=== PATIENT | male | born 1940 | race Hispanic/Latino ===

== ENCOUNTER 2016-09-16 08:38 | Outpatient (CLI) | payer MEDICARE ==
[2016-09-16 08:56] LABS: #Eosinphils 0.2 thou/uL (0.0-0.7); #Lymphocytes 1.9 thou/uL (1.20-3.40); #Monocytes 0.6 thou/uL (0.11-0.59); #Neutrophils 3.3 thou/uL (1.40-6.50); %Basophils 0.8 % (0.0-1.0); %Eosinophils 2.7 % (0.0-10.0); %Monocytes 9.7 % (0.0-10.0); %Neutrophils 54.9 % (42.0-75.0); Hemoglobin 14.7 g/dL (14.0-18.0); Mean Corpuscular HGB CONC 35.3 g/dL (32.0-36.0); Mean Corpuscular Volume 96.4 fl (80.0-94.0); Mean Platelet Volume 11.3 fL (7.4-10.4); Platelet Count 158 thou/uL (130-400); RBC Distribution Width 11.5 % (11.5-14.5); Red Blood Cell (RBC) Count 4.33 mill/uL (4.70-6.10)
[2016-09-16 09:22] LABS: ALT (SGPT) 27 U/L (0-55); AST (SGOT) 20 U/L (5-34); Albumin 4.2 g/dL (3.4-4.8); Alkaline Phosphatase 71 U/L (40-150); Anion Gap 16 mmol/L (10-20); BUN (Urea Nitrogen) 16 mg/dL (8.4-25.7); Bilirubin, Total 0.8 mg/dL (0.2-1.2); Calc. Creatinine Clearance 0 mL/min (70-130); Carbon Dioxide 24 mmol/L (23-31); Cardiac Risk 2.6 (Less than 4.5); Chloride 105 mmol/L (98-107); Cholesterol 106 mg/dL (< 200 Desired); Estimated GFR-MDRD Greater than 90; Globulin 2.3 g/dL (2.4-3.5); Glucose 101 mg/dL (83-110); HDL Cholesterol 41 mg/dL (>60 Neg Risk); LDL Cholesterol, Calculated 51 mg/dL; Potassium 4.2 mmol/L (3.5-5.1); Protein, Total 6.5 g/dL (5.8-8.1); Sodium 141 mmol/L (136-145); Triglycerides 71 mg/dL (Less than 150)
[2016-09-16 12:14] LABS: Bilirubin Negative (Negative); Blood, Urine Negative (Negative); Clarity Clear (Clear); Glucose, Urine (Dipstick) Negative (Negative); Leukocyte Negative (Negative); Nitrite Negative (Negative); Protein, Urine (Dipstick) Negative (Neg-Trace); Urobilinogen 0.2 mg/dL (0.2-1.0); pH, Urine 6.5 (5.0-9.0)
[2016-09-16 12:26] LABS: Bacteria/HPF None Seen HPF (None Seen); RBC/HPF 0-3 HPF (0-3); Squamous Epithelial 0-3 HPF (0-3); WBC/HPF 0-3 HPF (0-3)
== END 2016-09-16 08:39 | disposition home or self-care (01) ==
LOC: MADLABBHPM 08:38
PROVIDERS: ATTEND Family Medicine
DX: I25.10 Atherosclerotic heart disease of native coronary artery without angina pectoris (principal)
CPT/HCPCS: 36415; 80053; 80061; 81001; 84443; 85025

== ENCOUNTER 2018-03-09 10:54 | Outpatient (CLI) | payer MEDICARE ==
[2018-03-09 11:55] LABS: ALT (SGPT) 24 U/L (8-55); AST (SGOT) 18 U/L (5-34); Albumin 4.9 g/dL (3.4-4.8); Alkaline Phosphatase 75 U/L (40-150); Anion Gap 16 mmol/L (10-20); BUN (Urea Nitrogen) 24 mg/dL (8.4-25.7); Bilirubin, Total 1.5 mg/dL (0.2-1.2); Calc. Creatinine Clearance 0 mL/min (70-130); Calcium 9.6 mg/dL (7.8-10.44); Carbon Dioxide 22 mmol/L (23-31); Cardiac Risk 2.9 (Less than 4.5); Chloride 104 mmol/L (98-107); Cholesterol 155 mg/dl (< 200 Desired); Estimated GFR-MDRD 81; Glucose 139 mg/dL (83-110); HDL Cholesterol 54 mg/dL (>60 Neg Risk); LDL Cholesterol, Calculated 91 mg/dL; Potassium 4.2 mmol/L (3.5-5.1); Protein, Total 7.9 g/dL (5.8-8.1); Sodium 138 mmol/L (136-145); Triglycerides 52 mg/dL (Less than 150)
== END 2018-03-09 10:55 | disposition home or self-care (01) ==
LOC: MADLABBHPM 10:54
PROVIDERS: ATTEND Internal Medicine Cardiovascular Disease
DX: E78.00 Pure hypercholesterolemia, unspecified (principal)
CPT/HCPCS: 36415; 80053; 80061

== ENCOUNTER 2018-06-20 04:14 | Emergency (ER) | payer MEDICARE ==
[2018-06-20] MEDS ORDERED: Tetracaine 0.5% OPHTH SOLN/PF 4 ML BOT ONE (04:26)
[2018-06-20] MEDS ORDERED: predniSONE 20 MG TAB ONE (04:51)
[2018-06-20] MEDS ORDERED: Acetaminophen 500 MG TAB ONE (04:53)
== END 2018-06-20 05:06 | disposition home or self-care (01) ==
LOC: MADERS 04:14
DX: H10.12 Acute atopic conjunctivitis, left eye (principal); I10 Essential (primary) hypertension; Z86.73 Personal history of transient ischemic attack (TIA), and cerebral infarction without residual deficits; Z79.82 Long term (current) use of aspirin; Z79.899 Other long term (current) drug therapy
CPT/HCPCS: 99283; J7506

== ENCOUNTER 2020-10-27 14:08 | Emergency (ER) | payer MEDICARE, MEDICAID ==
[2020-10-27 15:18] LABS: #Eosinphils 0.2 thou/uL (0.0-0.7); #Lymphocytes 1.4 thou/uL (1.20-3.40); #Monocytes 0.5 thou/uL (0.11-0.59); #Neutrophils 4.6 thou/uL (1.40-6.50); %Basophils 0.7 % (0.0-1.0); %Lymphocytes 20.3 % (21.0-51.0); %Monocytes 7.8 % (0.0-10.0); %Neutrophils 68.3 % (42.0-75.0); Hemoglobin 10.8 g/dL (14.0-18.0); Mean Corpuscular HGB CONC 32.9 g/dL (32.0-36.0); Mean Corpuscular Volume 97.2 fL (78.0-98.0); Mean Platelet Volume 8.4 fL (7.4-10.4); Platelet Count 175 thou/uL (130-400); RBC Distribution Width 12.7 % (11.5-14.5); Red Blood Cell (RBC) Count 3.39 mill/uL (4.70-6.10); White Blood Cell (WBC) Count 6.8 thou/uL (4.8-10.8)
--- NOTE | 2020-10-27 15:26 | RAD ---
EXAM: Chest one view: HISTORY: Cough and fever COMPARISON: 11/19/2008 FINDINGS: Heart size: Within normal limits. Lungs: Clear of acute process. No evidence for confluent lobar pneumonia, significant pleural effusion, acute edema, or pneumothorax , or other significant acute process. IMPRESSION: No significant acute intrathoracic disease.
[2020-10-27 15:35] LABS: ALT (SGPT) 14 U/L (8-55); AST (SGOT) 15 U/L (5-34); Albumin 3.9 g/dL (3.4-4.8); Alkaline Phosphatase 87 U/L (40-110); Anion Gap 16 mmol/L (10-20); BUN (Urea Nitrogen) 25 mg/dL (8.4-25.7); Bilirubin, Total 0.4 mg/dL (0.2-1.2); Calc. Creatinine Clearance 0 mL/min (70-130); Calcium 9.4 mg/dL (7.8-10.44); Carbon Dioxide 24 mmol/L (23-31); Chloride 106 mmol/L (98-107); Globulin 3.4 g/dL (2.4-3.5); Glucose 103 mg/dL (83-110); Potassium 3.6 mmol/L (3.5-5.1); Protein, Total 7.3 g/dL (5.8-8.1); Sodium 142 mmol/L (136-145)
[2020-10-27 16:28] LABS: Bilirubin Negative (Negative); Blood, Urine Small (Negative); Clarity Hazy (Clear); Glucose, Urine (Dipstick) Negative (Negative); Ketone, Urine Negative (Negative); Leukocyte Moderate (Negative); Nitrite Positive (Negative); Protein, Urine (Dipstick) Negative (Neg-Trace); Urobilinogen 0.2 mg/dL (Less than 2); pH, Urine 6.5 (5.0-9.0)
[2020-10-27 16:34] LABS: SARS-CoV-2 NAA Rapid Test Not Detected (NotDetected)
[2020-10-27 16:36] LABS: RBC/HPF 0-3 HPF (0-3); Squamous Epithelial 0-3 HPF (0-3); WBC/HPF 21-50 HPF (0-3)
[2020-10-27 16:37] LABS: Bacteria/HPF 2+ HPF (None Seen)
[2020-10-27] MEDS ORDERED: cefTRIAXone\\ROCEPHIN 1 GM VIAL ONE (17:09)
[2020-10-27] MEDS ORDERED: Sodium Chloride 0.9% 100 ML ONE (17:10)
== END 2020-10-27 18:05 | disposition critical access hospital (66) ==
LOC: MADERS 14:08
DX: N39.0 Urinary tract infection, site not specified (principal); Z20.822 Contact with and (suspected) exposure to COVID-19; I10 Essential (primary) hypertension; Z86.73 Personal history of transient ischemic attack (TIA), and cerebral infarction without residual deficits; Z79.82 Long term (current) use of aspirin; Z79.899 Other long term (current) drug therapy
CPT/HCPCS: 0240U; 36415; 71045; 80053; 81003; 81015; 83605; 84484; 85025; 87040; 87077; 87086; 87186; 93005; J0696; J3490

== ENCOUNTER 2020-10-27 18:25 | Inpatient (IN) | payer MEDICARE, MEDICAID ==
[2020-10-27] MEDS: Sodium Chloride 0.9% 1,000 ML IV SCH (22:10)
[2020-10-27] MEDS: Famotidine 20 MG TAB PO SCH (22:15)
[2020-10-27] MEDS: Temazepam 15 MG CAP PO SCH (22:16)
[2020-10-27] MEDS: OLANZapine 5 MG TAB PO SCH (22:16)
[2020-10-27] MEDS: Mirtazapine 15 MG TAB PO SCH (22:17)
[2020-10-27] MEDS: Metoprolol Tartrate 25 MG TAB PO SCH (22:17)
[2020-10-27] MEDS: Tamsulosin HCl 0.4 MG CAP PO SCH (22:17)
[2020-10-28 02:57] VITALS: BMI 22.5
[2020-10-28 05:49] LABS: Band 1 % (5-11); Hemoglobin 11.1 g/dL (14.0-18.0); Lymphocytes 16 % (21-51); MDiff Complete? YES; Mean Corpuscular HGB CONC 33.6 g/dL (32.0-36.0); Mean Corpuscular Hemoglobin 32.6 pg (27.0-31.0); Mean Platelet Volume 8.9 fL (7.4-10.4); Monocytes 8 % (0-10); Neutrophil 75 % (42-75); Platelet Count 180 thou/uL (130-400); Platelet Morphology Comment Appears Adequate; RBC Distribution Width 12.8 % (11.5-14.5); RBC Morphology Normal; Red Blood Cell (RBC) Count 3.41 mill/uL (4.70-6.10); White Blood Cell (WBC) Count 5.7 thou/uL (4.8-10.8)
[2020-10-28 05:50] LABS: Anion Gap 14 mmol/L (10-20); BUN (Urea Nitrogen) 16 mg/dL (8.4-25.7); Calc. Creatinine Clearance 80 mL/min (70-130); Calcium 9.1 mg/dL (7.8-10.44); Carbon Dioxide 26 mmol/L (23-31); Chloride 109 mmol/L (98-107); Glucose 84 mg/dL (83-110); Potassium 3.4 mmol/L (3.5-5.1); Sodium 146 mmol/L (136-145)
[2020-10-28] MEDS: Sodium Chloride 0.9% 1,000 ML IV SCH (08:56)
[2020-10-28] MEDS: Amlodipine 5 MG TAB PO SCH (08:57)
[2020-10-28] MEDS: Famotidine 20 MG TAB PO SCH ×2 (08:57→20:23)
[2020-10-28] MEDS: Azithromycin 250 MG TAB PO SCH (08:57)
[2020-10-28] MEDS: Metoprolol Tartrate 25 MG TAB PO SCH ×2 (08:58→20:24)
[2020-10-28] MEDS ORDERED: FLU VACC QS2020-21(65YR UP)/PF 240 MCG/0.7 ML SYRINGE IM ONE (09:00)
[2020-10-28] MEDS ORDERED: Bromocriptine 2.5 MG TAB PO SCH (09:00)
[2020-10-28] MEDS ORDERED: OLANZapine 5 MG TAB PO SCH (11:00)
[2020-10-28] MEDS ORDERED: Albuterol 200 PUFF (6.7GM INHALER) INH PRN (16:02)
[2020-10-28] MEDS: Albuterol 200 PUFF (6.7GM INHALER) INH SCH ×2 (16:11→18:19)
[2020-10-28] MEDS: Potassium Chloride 10 MEQ TAB PO SCH (16:57)
[2020-10-28] MEDS ORDERED: cefTRIAXone\\ROCEPHIN 1 GM in Sodium Chloride 0.9% 100 ML IVPB SCH (17:00)
[2020-10-28] MEDS: guaiFENesin ER 600 MG TAB PO SCH (20:23)
[2020-10-28] MEDS: Cefdinir 300 MG CAP PO SCH (20:23)
[2020-10-28] MEDS: Tamsulosin HCl 0.4 MG CAP PO SCH (20:24)
[2020-10-28] MEDS: Temazepam 15 MG CAP PO SCH (20:24)
[2020-10-28] MEDS: OLANZapine 5 MG TAB PO SCH (20:24)
[2020-10-28] MEDS: Mirtazapine 15 MG TAB PO SCH (20:24)
[2020-10-29] MEDS: Albuterol 200 PUFF (6.7GM INHALER) INH SCH ×3 (05:15→18:00)
[2020-10-29] MEDS ORDERED: predniSONE 20 MG TAB PO SCH (08:00)
[2020-10-29] MEDS: Azithromycin 250 MG TAB PO SCH (08:24)
[2020-10-29] MEDS: Amlodipine 5 MG TAB PO SCH (08:24)
[2020-10-29] MEDS: Metoprolol Tartrate 25 MG TAB PO SCH (08:24)
[2020-10-29] MEDS: Famotidine 20 MG TAB PO SCH (08:24)
[2020-10-29] MEDS: Cefdinir 300 MG CAP PO SCH (08:24)
[2020-10-29] MEDS: guaiFENesin ER 600 MG TAB PO SCH (08:24)
[2020-10-29] MEDS: Potassium Chloride 10 MEQ TAB PO SCH (08:25)
[2020-10-29] MEDS: Enoxaparin Sodium 40 MG/0.4 ML SYRINGE SC SCH (08:25)
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
[2020-10-29] MEDS ORDERED: OLANZapine 5 MG TAB PO SCH (09:00)
[2020-10-29] MEDS ORDERED: SMX/TMP 800-160mg/20 ML UDCUP ONE ×2 (11:13→20:29)
[2020-10-29] MEDS ORDERED: SMX/TMP 800-160mg/20 ML UDCUP PER TUBE SCH (11:15)
[2020-10-29] MEDS ORDERED: Potassium Bicarbonate/Cit Ac 20 MEQ TAB PER TUBE SCH (17:15)
[2020-10-29] MEDS: GUAIFENESIN SF SOLN 200 MG/10 ML UDCUP PER TUBE SCH (17:19)
[2020-10-29] MEDS ORDERED: Mirtazapine 15 MG TAB PER TUBE SCH (21:00)
[2020-10-29] MEDS ORDERED: Tamsulosin HCl 0.4 MG CAP PO SCH (21:00)
[2020-10-29] MEDS: Cefdinir 300 MG CAP PER TUBE SCH (21:51)
[2020-10-29] MEDS: Tamsulosin HCl 0.4 MG CAP PO SCH (21:51)
[2020-10-29] MEDS: Temazepam 15 MG CAP PER TUBE SCH (21:51)
[2020-10-29] MEDS: Metoprolol Tartrate 25 MG TAB PER TUBE SCH (21:52)
[2020-10-29] MEDS: OLANZapine 5 MG TAB PER TUBE SCH (21:52)
[2020-10-29] MEDS: Famotidine 20 MG TAB PER TUBE SCH (21:53)
[2020-10-29] MEDS: SMX/TMP 800-160mg/20 ML UDCUP PER TUBE SCH (21:54)
[2020-10-29] MEDS ORDERED: Mirtazapine 30 MG Soltab PER TUBE SCH (22:45)
[2020-10-30] MEDS ORDERED: Guaifenesin DM 100-10/5 ML UDCUP ONE (00:47)
[2020-10-30] MEDS: GUAIFENESIN SF SOLN 200 MG/10 ML UDCUP PER TUBE SCH ×4 (02:30→17:21)
[2020-10-30 05:23] LABS: #Eosinphils 0.1 thou/uL (0.0-0.7); #Lymphocytes 1.5 thou/uL (1.20-3.40); #Monocytes 0.7 thou/uL (0.11-0.59); #Neutrophils 3.8 thou/uL (1.40-6.50); %Basophils 0.6 % (0.0-1.0); %Eosinophils 1.9 % (0.0-10.0); %Lymphocytes 24.5 % (21.0-51.0); %Monocytes 11.7 % (0.0-10.0); %Neutrophils 61.3 % (42.0-75.0); Hemoglobin 11.8 g/dL (14.0-18.0); Mean Corpuscular Hemoglobin 31.2 pg (27.0-31.0); Mean Corpuscular Volume 94.7 fL (78.0-98.0); Mean Platelet Volume 7.9 fL (7.4-10.4); Platelet Count 223 thou/uL (130-400); RBC Distribution Width 12.3 % (11.5-14.5); Red Blood Cell (RBC) Count 3.79 mill/uL (4.70-6.10); White Blood Cell (WBC) Count 6.2 thou/uL (4.8-10.8)
[2020-10-30] MEDS: Albuterol 200 PUFF (6.7GM INHALER) INH SCH ×3 (05:29→17:24)
[2020-10-30 05:33] LABS: Anion Gap 15 mmol/L (10-20); BUN (Urea Nitrogen) 29 mg/dL (8.4-25.7); Calc. Creatinine Clearance 68 mL/min (70-130); Calcium 9.4 mg/dL (7.8-10.44); Carbon Dioxide 26 mmol/L (23-31); Chloride 106 mmol/L (98-107); Glucose 121 mg/dL (83-110); Potassium 3.2 mmol/L (3.5-5.1); Sodium 144 mmol/L (136-145)
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
[2020-10-30] MEDS ORDERED: Amlodipine 5 MG TAB PO SCH (09:00)
[2020-10-30] MEDS: OLANZapine 5 MG TAB PER TUBE SCH ×2 (09:17→21:50)
[2020-10-30] MEDS: Cefdinir 300 MG CAP PER TUBE SCH ×2 (09:17→21:50)
[2020-10-30] MEDS: predniSONE 20 MG TAB PER TUBE SCH (09:17)
[2020-10-30] MEDS: Famotidine 20 MG TAB PER TUBE SCH ×2 (09:17→21:50)
[2020-10-30] MEDS: Metoprolol Tartrate 25 MG TAB PER TUBE SCH ×2 (09:18→21:51)
[2020-10-30] MEDS: Potassium Bicarbonate/Cit Ac 20 MEQ TAB PER TUBE SCH ×2 (09:18→17:21)
[2020-10-30] MEDS: Enoxaparin Sodium 40 MG/0.4 ML SYRINGE SC SCH (09:19)
[2020-10-30] MEDS: Azithromycin 200 MG/5 ML Oral Suspension PER TUBE SCH (09:32)
[2020-10-30] MEDS: SMX/TMP 800-160mg/20 ML UDCUP PER TUBE SCH ×2 (09:35→21:50)
[2020-10-30] MEDS: Amlodipine 5 MG TAB PER TUBE SCH (09:53)
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
[2020-10-30] MEDS ORDERED: Sodium Bicarbonate Tab 325 MG TAB PER TUBE PRN (16:00)
[2020-10-30] MEDS ORDERED: Pancrelipase DR 12,000 1 CAP FS PRN (16:00)
[2020-10-30] MEDS: Temazepam 15 MG CAP PER TUBE SCH (21:00)
[2020-10-30] MEDS: Mirtazapine 30 MG Soltab PER TUBE SCH (21:50)
[2020-10-30] MEDS: Tamsulosin HCl 0.4 MG CAP PO SCH (21:51)
[2020-10-31] MEDS: Albuterol 200 PUFF (6.7GM INHALER) INH SCH ×3 (07:17→17:32)
[2020-10-31] MEDS: GUAIFENESIN SF SOLN 200 MG/10 ML UDCUP PER TUBE SCH ×4 (07:18→17:33)
[2020-10-31] MEDS: Potassium Chloride 10 MEQ TAB PO SCH (07:42)
[2020-10-31] MEDS: predniSONE 20 MG TAB PER TUBE SCH ×2 (08:51→09:41)
[2020-10-31] MEDS: Famotidine 20 MG TAB PER TUBE SCH ×2 (09:13→21:10)
[2020-10-31] MEDS: Enoxaparin Sodium 40 MG/0.4 ML SYRINGE SC SCH (09:13)
[2020-10-31] MEDS: Amlodipine 5 MG TAB PER TUBE SCH (09:13)
[2020-10-31] MEDS: OLANZapine 5 MG TAB PER TUBE SCH ×2 (09:13→16:31)
[2020-10-31] MEDS: Metoprolol Tartrate 25 MG TAB PER TUBE SCH ×2 (09:13→21:10)
[2020-10-31] MEDS: Cefdinir 300 MG CAP PER TUBE SCH ×2 (09:13→21:11)
[2020-10-31] MEDS: Azithromycin 200 MG/5 ML Oral Suspension PER TUBE SCH (09:14)
[2020-10-31] MEDS: SMX/TMP 800-160mg/20 ML UDCUP PER TUBE SCH ×2 (09:17→21:10)
[2020-10-31] MEDS: Potassium Bicarbonate/Cit Ac 20 MEQ TAB PER TUBE SCH ×2 (09:41→17:33)
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
[2020-10-31] MEDS ORDERED: OLANZapine 5 MG TAB PER TUBE SCH (17:15)
[2020-10-31] MEDS: Tamsulosin HCl 0.4 MG CAP PO SCH (21:10)
[2020-10-31] MEDS: Mirtazapine 30 MG Soltab PER TUBE SCH (21:10)
[2020-10-31] MEDS: Temazepam 15 MG CAP PER TUBE SCH (21:11)
[2020-11-01] MEDS: GUAIFENESIN SF SOLN 200 MG/10 ML UDCUP PER TUBE SCH ×2 (00:29→05:33)
[2020-11-01] MEDS: Albuterol 200 PUFF (6.7GM INHALER) INH SCH (05:56)
[2020-11-01 06:04] LABS: ALT (SGPT) 19 U/L (8-55); AST (SGOT) 16 U/L (5-34); Albumin 4.3 g/dL (3.4-4.8); Alkaline Phosphatase 87 U/L (40-110); Anion Gap 17 mmol/L (10-20); BUN (Urea Nitrogen) 19 mg/dL (8.4-25.7); Bilirubin, Total 0.3 mg/dL (0.2-1.2); Calc. Creatinine Clearance 70 mL/min (70-130); Calcium 9.8 mg/dL (7.8-10.44); Carbon Dioxide 29 mmol/L (23-31); Chloride 105 mmol/L (98-107); Globulin 3.7 g/dL (2.4-3.5); Glucose 94 mg/dL (83-110); Potassium 4.3 mmol/L (3.5-5.1); Sodium 147 mmol/L (136-145)
[2020-11-01 06:41] LABS: Hemoglobin 13.1 g/dL (14.0-18.0); Mean Corpuscular HGB CONC 31.8 g/dL (32.0-36.0); Mean Corpuscular Hemoglobin 30.9 pg (27.0-31.0); Mean Corpuscular Volume 97.2 fL (78.0-98.0); Mean Platelet Volume 8.2 fL (7.4-10.4); Platelet Count 242 thou/uL (130-400); RBC Distribution Width 12.6 % (11.5-14.5); Red Blood Cell (RBC) Count 4.25 mill/uL (4.70-6.10); White Blood Cell (WBC) Count 7.1 thou/uL (4.8-10.8)
[2020-11-01 06:46] LABS: Band 2 % (5-11); Eosinophils 1 % (0-10); Lymphocytes 42 % (21-51); MDiff Complete? YES; Manual Diff?? YES; Monocytes 6 % (0-10); Neutrophil 49 % (42-75)
[2020-11-01 06:47] LABS: Platelet Morphology Comment Appears Adequate; RBC Morphology Normal
[2020-11-01] MEDS: Famotidine 20 MG TAB PER TUBE SCH (09:20)
[2020-11-01] MEDS: Potassium Bicarbonate/Cit Ac 20 MEQ TAB PER TUBE SCH (09:21)
[2020-11-01] MEDS: SMX/TMP 800-160mg/20 ML UDCUP PER TUBE SCH (09:21)
[2020-11-01] MEDS: predniSONE 20 MG TAB PER TUBE SCH (09:21)
[2020-11-01] MEDS: Metoprolol Tartrate 25 MG TAB PER TUBE SCH (09:21)
[2020-11-01] MEDS: Enoxaparin Sodium 40 MG/0.4 ML SYRINGE SC SCH (09:21)
[2020-11-01] MEDS: Cefdinir 300 MG CAP PER TUBE SCH (09:21)
[2020-11-01] MEDS: Amlodipine 5 MG TAB PER TUBE SCH (09:21)
[2020-11-01] MEDS: OLANZapine 5 MG TAB PER TUBE SCH (09:21)
[2020-11-01 09:26] VITALS: BP 135/75; TEMP 98.8
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
[2020-11-01] MEDS ORDERED: OLANZapine 5 MG TAB PER TUBE SCH (21:00)
== END 2020-11-01 12:05 | DRG 91 ==
LOC: MADMS 18:25
PROVIDERS: ADMIT Family Medicine; ATTEND Family Medicine
DX: S06.890S Other specified intracranial injury without loss of consciousness, sequela (principal); J69.0 Pneumonitis due to inhalation of food and vomit; N39.0 Urinary tract infection, site not specified; F28 Other psychotic disorder not due to a substance or known physiological condition; J45.909 Unspecified asthma, uncomplicated; I10 Essential (primary) hypertension; I25.10 Atherosclerotic heart disease of native coronary artery without angina pectoris; R13.10 Dysphagia, unspecified; R32 Unspecified urinary incontinence; E78.5 Hyperlipidemia, unspecified; R53.1 Weakness; G47.00 Insomnia, unspecified; B95.62 Methicillin resistant Staphylococcus aureus infection as the cause of diseases classified elsewhere; S06.9X0S Unspecified intracranial injury without loss of consciousness, sequela; Z87.820 Personal history of traumatic brain injury; Z95.1 Presence of aortocoronary bypass graft; V09.9XXS Pedestrian injured in unspecified transport accident, sequela; Z79.899 Other long term (current) drug therapy; Z87.81 Personal history of (healed) traumatic fracture
CPT/HCPCS: 0240U; 36415; 51701; 71045; 80048; 80053; 81003; 81015; 83605; 84484; 85025; 87040; 87077; 87086; 87186; 93005; 96365; J0696; J1650; J3490; J7050; J7512

== ENCOUNTER 2020-11-25 21:02 | Emergency (ER) | payer MEDICARE, MEDICAID ==
[2020-11-25 22:01] LABS: #Basophils 0.1 thou/uL (0.0-0.2); #Lymphocytes 1.7 thou/uL (1.20-3.40); #Monocytes 1.2 thou/uL (0.11-0.59); #Neutrophils 8.1 thou/uL (1.40-6.50); %Basophils 0.5 % (0.0-1.0); %Eosinophils 0.4 % (0.0-10.0); %Lymphocytes 15.2 % (21.0-51.0); %Monocytes 10.8 % (0.0-10.0); %Neutrophils 73.1 % (42.0-75.0); Mean Corpuscular HGB CONC 33.9 g/dL (32.0-36.0); Mean Corpuscular Hemoglobin 31.8 pg (27.0-31.0); Mean Corpuscular Volume 93.9 fL (78.0-98.0); Mean Platelet Volume 7.7 fL (7.4-10.4); Platelet Count 276 thou/uL (130-400); Red Blood Cell (RBC) Count 3.76 mill/uL (4.70-6.10); White Blood Cell (WBC) Count 11.1 thou/uL (4.8-10.8)
[2020-11-25 22:17] LABS: ALT (SGPT) 27 U/L (8-55); AST (SGOT) 20 U/L (5-34); Albumin 2.8 g/dL (3.4-4.8); Alkaline Phosphatase 61 U/L (40-110); Anion Gap 14 mmol/L (10-20); BUN (Urea Nitrogen) 15 mg/dL (8.4-25.7); Bilirubin, Total 0.2 mg/dL (0.2-1.2); Calc. Creatinine Clearance 0 mL/min (70-130); Calcium 7.8 mg/dL (7.8-10.44); Carbon Dioxide 26 mmol/L (23-31); Chloride 102 mmol/L (98-107); Glucose 76 mg/dL (83-110); Potassium 3.8 mmol/L (3.5-5.1); Protein, Total 5.8 g/dL (5.8-8.1); Sodium 138 mmol/L (136-145)
[2020-11-25 23:58] LABS: Bilirubin Negative (Negative); Blood, Urine Moderate (Negative); Clarity Cloudy (Clear); Glucose, Urine (Dipstick) Negative (Negative); Ketone, Urine Trace mg/dL (Negative); Leukocyte Large (Negative); Nitrite Positive (Negative); Protein, Urine (Dipstick) Trace mg/dL (Neg-Trace); Urobilinogen 0.2 mg/dL (Less than 2); pH, Urine 7.5 (5.0-9.0)
[2020-11-26 00:02] LABS: Bacteria/HPF 3+ HPF (None Seen); Mucous/LPF 4+ LPF (<2+); Squamous Epithelial 0-3 HPF (0-3); WBC/HPF Greater than 50 HPF (0-3)
[2020-11-26] MEDS ORDERED: Sodium Chloride 0.9% 1,000 ML ONE (00:27)
[2020-11-26] MEDS ORDERED: cefTRIAXone\\ROCEPHIN 1 GM VIAL ONE (00:27)
== END 2020-11-26 02:34 | disposition short-term general hospital (02) ==
LOC: MADERS 21:02
DX: N39.0 Urinary tract infection, site not specified (principal); I95.9 Hypotension, unspecified; R19.7 Diarrhea, unspecified; I10 Essential (primary) hypertension; Z86.73 Personal history of transient ischemic attack (TIA), and cerebral infarction without residual deficits; Z79.899 Other long term (current) drug therapy; Z79.82 Long term (current) use of aspirin
CPT/HCPCS: 36415; 51701; 71045; 80053; 81003; 81015; 83605; 83880; 84484; 85025; 87040; 87045; 87046; 87077; 87086; 87149; 87186; 87324; 87427; 87449; 93005; 96361; 96374; J0696; J7050

== ENCOUNTER 2022-03-09 11:48 | Emergency (ER) | payer MEDICARE, MEDICAID ==
[2022-03-09 12:42] LABS: Hemoglobin 12.4 g/dL (14.0-18.0); Mean Corpuscular HGB CONC 34.2 g/dL (32.0-36.0); Mean Corpuscular Hemoglobin 32.8 pg (27.0-31.0); Mean Corpuscular Volume 95.7 fL (78.0-98.0); Mean Platelet Volume 12.4 fL (7.4-10.4); Platelet Count 119 thou/uL (130-400); RBC Distribution Width 11.9 % (11.5-14.5); Red Blood Cell (RBC) Count 3.79 mill/uL (4.70-6.10); White Blood Cell (WBC) Count 8.5 thou/uL (4.8-10.8)
[2022-03-09 12:55] LABS: ALT (SGPT) 17 U/L (8-55); AST (SGOT) 14 U/L (5-34); Albumin 3.9 g/dL (3.4-4.8); Alkaline Phosphatase 98 U/L (40-110); Anion Gap 13 mmol/L (10-20); BUN (Urea Nitrogen) 21 mg/dL (8.4-25.7); Bilirubin, Total 0.5 mg/dL (0.2-1.2); Calc. Creatinine Clearance 0 mL/min (70-130); Calcium 8.4 mg/dL (7.8-10.44); Carbon Dioxide 26 mmol/L (23-31); Estimated GFR 79; Globulin 2.7 g/dL (2.4-3.5); Glucose 157 mg/dL (83-110); Lipase 35 U/L (8-78); Protein, Total 6.6 g/dL (5.8-8.1)
[2022-03-09 12:59] LABS: Chloride 109 mmol/L (98-107); Potassium 4.4 mmol/L (3.5-5.1); Sodium 144 mmol/L (136-145)
[2022-03-09 13:09] LABS: Band 4 % (5-11); Lymphocytes 3 % (21-51); Monocytes 4 % (0-10); Neutrophil 88 % (42-75); Platelet Morphology Comment Appears Adequate
[2022-03-09 13:10] LABS: MDiff Complete? YES; Manual Diff?? YES
== END 2022-03-09 13:58 | disposition home or self-care (01) ==
LOC: MADERS 11:48
DX: R14.0 Abdominal distension (gaseous) (principal); I10 Essential (primary) hypertension; Z86.73 Personal history of transient ischemic attack (TIA), and cerebral infarction without residual deficits; Z79.82 Long term (current) use of aspirin; Z79.899 Other long term (current) drug therapy
CPT/HCPCS: 71045; 80053; 83690; 84484; 85025; 93005; 94760

== ENCOUNTER 2022-04-17 18:59 | Outpatient (CLI) | payer MEDICARE, MEDICAID ==
[2022-04-17 19:32] LABS: #Eosinphils 0.4 thou/uL (0.0-0.7); #Lymphocytes 2.2 thou/uL (1.20-3.40); #Monocytes 0.5 thou/uL (0.11-0.59); #Neutrophils 3.3 thou/uL (1.40-6.50); %Basophils 0.7 % (0.0-1.0); %Eosinophils 5.7 % (0.0-10.0); %Lymphocytes 34.8 % (21.0-51.0); %Monocytes 7.9 % (0.0-10.0); %Neutrophils 50.8 % (42.0-75.0); Hemoglobin 12.6 g/dL (14.0-18.0); Mean Corpuscular Volume 100.2 fL (78.0-98.0); Platelet Count 127 thou/uL (130-400); RBC Distribution Width 11.2 % (11.5-14.5); Red Blood Cell (RBC) Count 3.82 mill/uL (4.70-6.10); White Blood Cell (WBC) Count 6.4 thou/uL (4.8-10.8)
[2022-04-17 19:48] LABS: ALT (SGPT) 18 U/L (8-55); AST (SGOT) 16 U/L (5-34); Albumin 4.2 g/dL (3.4-4.8); Alkaline Phosphatase 107 U/L (40-110); Anion Gap 15 mmol/L (10-20); BUN (Urea Nitrogen) 25 mg/dL (8.4-25.7); Bilirubin, Total 0.2 mg/dL (0.2-1.2); Calc. Creatinine Clearance 0 mL/min (70-130); Calcium 9.1 mg/dL (7.8-10.44); Carbon Dioxide 24 mmol/L (23-31); Chloride 106 mmol/L (98-107); Estimated GFR 89; Globulin 2.9 g/dL (2.4-3.5); Glucose 78 mg/dL (83-110); Potassium 4.2 mmol/L (3.5-5.1); Protein, Total 7.1 g/dL (5.8-8.1); Sodium 141 mmol/L (136-145)
== END 2022-04-17 19:00 | disposition home or self-care (01) ==
LOC: MADLABSP 18:59
DX: I10 Essential (primary) hypertension (principal)
CPT/HCPCS: 80053; 85025

== ENCOUNTER 2024-10-08 19:40 | Emergency (ER) | payer MEDICARE, OTHER ==
[2024-10-08] MEDS ORDERED: Erythromycin Base 0.5% Ophth Oint 3.5 gm Tube ONE (20:11)
== END 2024-10-08 21:10 ==
LOC: MADERS 19:40
DX: S05.02XA Injury of conjunctiva and corneal abrasion without foreign body, left eye, initial encounter (principal); I10 Essential (primary) hypertension; Z55.6 Problems related to health literacy; Z86.73 Personal history of transient ischemic attack (TIA), and cerebral infarction without residual deficits; X58.XXXA Exposure to other specified factors, initial encounter; Y93.89 Activity, other specified
CPT/HCPCS: 99283

== ENCOUNTER 2025-06-14 15:16 | Outpatient (CLI) | payer MEDICARE, MEDICAID ==
[2025-06-14 15:45] LABS: #Basophils 0.0 thou/uL (0.0-0.2); #Eosinophils 0.1 thou/uL (0.0-0.7); #Lymphocytes 2.4 thou/uL (1.20-3.40); #Monocytes 0.5 thou/uL (0.11-0.59); #Neutrophils 3.8 thou/uL (1.40-6.50); %Basophils 0.5 % (0.0-1.0); %Eosinophils 1.6 % (0.0-10.0); %Lymphocytes 34.8 % (21.0-51.0); %Monocytes 7.8 % (0.0-10.0); %Neutrophils 55.3 % (42.0-75.0); Hematocrit 42.0 % (42.0-52.0); Hemoglobin 13.8 g/dL (14.0-18.0); Mean Corpuscular Hemoglobin 31.9 pg (27.0-31.0); Mean Corpuscular Volume 97.5 fl (78.0-98.0); Platelet Count 154 10x3/uL (130-400); Red Blood Cell (RBC) Count 4.30 mill/uL (4.70-6.10); White Blood Cell (WBC) Count 6.8 10x3/uL (4.8-10.8)
[2025-06-14 15:47] LABS: Anion Gap 18 mmol/L (10-20); BUN (Urea Nitrogen) 23 mg/dL (8.4-25.7); Calc. Creatinine Clearance 0 mL/min (70-130); Calcium 8.7 mg/dL (7.8-10.44); Carbon Dioxide 23 mmol/L (23-31); Chloride 107 mmol/L (98-107); Glucose 104 mg/dL (83-110); Potassium 5.3 mmol/L (3.5-5.1); Sodium 143 mmol/L (136-145)
== END 2025-06-14 15:17 | disposition home or self-care (01) ==
LOC: MADLAB 15:16
PROVIDERS: ATTEND Nurse Practitioner Primary Care
DX: S06.6X9D Traumatic subarachnoid hemorrhage with loss of consciousness of unspecified duration, subsequent encounter (principal); S06.2X9D Diffuse traumatic brain injury with loss of consciousness of unspecified duration, subsequent encounter; I25.10 Atherosclerotic heart disease of native coronary artery without angina pectoris
CPT/HCPCS: 80048; 85025

== ENCOUNTER 2025-08-06 23:53 | Outpatient (CLI) | payer MEDICARE, MEDICAID ==
[2025-08-07 00:57] LABS: ALT (SGPT) 15 U/L (Less than 45); AST (SGOT) 20 U/L (11-34); Albumin 4.2 g/dL (3.1-4.5); Alkaline Phosphatase 70 U/L (40-110); Anion Gap 17 mmol/L (10-20); BUN (Urea Nitrogen) 24 mg/dL (8.4-25.7); Bilirubin, Total 0.5 mg/dL (0.3-1.2); Calc. Creatinine Clearance 0 mL/min (70-130); Calcium 8.5 mg/dL (7.8-10.44); Carbon Dioxide 21 mmol/L (23-31); Chloride 106 mmol/L (98-107); Globulin 2.7 g/dL (2.4-3.5); Glucose 93 mg/dL (83-110); Potassium 6.0 mmol/L (3.5-5.1); Sodium 138 mmol/L (136-145)
[2025-08-07 01:32] LABS: Hematocrit 41.7 % (42.0-52.0); Hemoglobin 14.0 g/dL (14.0-18.0); MDiff Complete? YES; Mean Corpuscular Hemoglobin 33.0 pg (27.0-31.0); Mean Corpuscular Volume 97.9 fl (78.0-98.0); Platelet Count 157 10x3/uL (130-400); Red Blood Cell (RBC) Count 4.26 mill/uL (4.70-6.10); White Blood Cell (WBC) Count 7.7 10x3/uL (4.8-10.8)
== END 2025-08-06 23:54 | disposition home or self-care (01) ==
LOC: MADLAB 23:53
PROVIDERS: ATTEND Nurse Practitioner Primary Care
DX: I10 Essential (primary) hypertension (principal); E46 Unspecified protein-calorie malnutrition
CPT/HCPCS: 80053; 85025

== ENCOUNTER 2025-08-07 03:01 | Outpatient (CLI) | payer MEDICARE, MEDICAID ==
[2025-08-07 03:17] LABS: Anion Gap 13 mmol/L (10-20); BUN (Urea Nitrogen) 16 mg/dL (8.4-25.7); Calc. Creatinine Clearance 0 mL/min (70-130); Calcium 8.4 mg/dL (7.8-10.44); Carbon Dioxide 22 mmol/L (23-31); Chloride 107 mmol/L (98-107); Glucose 83 mg/dL (83-110); Potassium 3.8 mmol/L (3.5-5.1); Sodium 138 mmol/L (136-145)
== END 2025-08-07 03:02 | disposition home or self-care (01) ==
LOC: MADLAB 03:01
PROVIDERS: ATTEND Nurse Practitioner Primary Care
DX: I10 Essential (primary) hypertension (principal); E46 Unspecified protein-calorie malnutrition